=== PATIENT | male | born 1985 | race Caucasian/White ===

== ENCOUNTER 2017-04-18 22:31 | Emergency (ER) | payer SELFPAY ==
[2017-04-18 22:53] VITALS: BP 116/78; PULSE 83; RESP 18; TEMP 98.1; O2SAT 98
== END 2017-04-18 23:37 | disposition left against medical advice (07) ==
LOC: SUPCPDRO 22:31 → C.ER 22:35
DX: F10.10 Alcohol abuse, uncomplicated (principal); Z02.9 Encounter for administrative examinations, unspecified